=== PATIENT | female | born 1970 | race Caucasian/White ===

== ENCOUNTER 2019-04-24 10:24 | Emergency (ER) | payer MEDICAID ==
[~2019-04-24] VITALS: Ht 152.4 cm; Wt 83.0 kg
[2019-04-24 10:39] VITALS: BP_SYST 160
--- NOTE | 2019-04-24 10:46 | NUR ---
Patient triaged and placed in waiting room. VSS and patient appears in no acute distress at this time. Accompanied by DAUGHTER, awaiting available bed, and MD notified of need for MSE.
--- NOTE | 2019-04-24 11:08 | NUR ---
Pt placed in bed 8
--- NOTE | 2019-04-24 11:14 | NUR ---
Patient is awake, alert, and oriented x4. Patient hit her head this morning, striking her couch with her head. Her dialysis center refused to dialyze her until medically cleared. She denies any problems at this time.
--- NOTE | 2019-04-24 11:28 | NUR ---
ER Dr. Joy at bedside examining patient.
[2019-04-24 11:39] VITALS: BP_SYST 160
--- NOTE | 2019-04-24 11:39 | NUR ---
Patient given written and verbal discharge instructions and verbalizes understanding. ER MD discussed with patient the results and treatment provided. Patient in stable condition. ID arm band removed. Patient educated on pain management and to follow up with PMD. Pain Scale 0/10. Opportunity for questions provided and answered. Medication side effect fact sheet provided.
== END 2019-04-24 11:39 | disposition home or self-care (01) ==
LOC: SED 10:24
DX: S00.83XA Contusion of other part of head, initial encounter (principal); I10 Essential (primary) hypertension; Z88.0 Allergy status to penicillin; W18.39XA Other fall on same level, initial encounter; Y93.89 Activity, other specified; Y92.89 Other specified places as the place of occurrence of the external cause; Y99.8 Other external cause status
CPT/HCPCS: 99281